=== PATIENT | male | born 1955 | race American Indian/Alaskan Native ===

== ENCOUNTER 2019-03-26 07:52 | Inpatient (IN) | payer BC, OTHER ==
--- NOTE | 2019-03-26 08:43 | XRay Report ---
CHEST 1 VIEW INDICATION: Chest Pain COMPARISON: One day prior. FINDINGS: Support devices: None Heart: Normal Lungs/Pleura: No acute pulmonary or pleural findings. IMPRESSION: 1. No acute disease. Signer Name: Ronan Broderick MD Signed: 03/26/2019 8:39 AM Workstation Name: [id number]
[2019-03-26 08:49] LABS: Hematocrit 52.4 % (35.5-45.6); Hemoglobin 17.8 gm/dl (11.8-15.2); Mean Corpuscular HGB Conc 34 % (32-34); Mean Corpuscular Volume 91 fl (84-94); Platelet Count 261 K/mm3 (140-440); Red Blood Count 5.74 M/mm3 (3.65-5.03); Red Cell Distribution Width 14.4 % (13.2-15.2)
[2019-03-26] MEDS ORDERED: BABY ASPIRIN PO ONE (08:49)
[2019-03-26] MEDS ORDERED: NITROSTAT SL ONE ×2 (08:49→09:15)
[2019-03-26 08:52] LABS: Calcium 9.7 mg/dL (8.4-10.2)
[2019-03-26] MEDS ORDERED: MORPHINE ONE (09:09)
[2019-03-26] MEDS ORDERED: NACL 0.9% 1000 ML 1,000 ML ONE (09:09)
[2019-03-26] MEDS ORDERED: NACL 0.9% 1000 ML 1,000 ML IV ONE (09:17)
[2019-03-26] MEDS ORDERED: MORPHINE IV ONE (09:17)
[2019-03-26] MEDS ORDERED: HEPARIN 10,000 UNITS/10 ML IV ONE (09:22)
--- NOTE | 2019-03-26 09:29 | Emergency Department Report ---
ED Chest Pain HPI - General Chief Complaint: Chest Pain Stated Complaint: CHEST PAIN Time Seen by Provider: 03/26/19 08:22 Source: patient Mode of arrival: Ambulatory Limitations: No Limitations - History of Present Illness Initial Comments: 63-year-old -[place]altese male presents to the emergency department from home with complaint of left shoulder pain and left-sided chest pain. Overall he says that this is been going on intermittently over the past 3 weeks. However this morning the patient started having diaphoresis and consistent chest and shoulder pain. He denies any shortness of breath. He is a tobacco smoker but denies any illicit drug use. There is some questionable family history of early cardiac disease. The patient himself has a history of hypertension and coronary artery disease with a cardiac stent in place and previous PA. 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 He did not take an ything for his symptoms prior to arrival today. No recent travel or sick contacts at home. He denies any lower extremity swelling or fever. Severity scale (0 -10): 7 - Related Data Allergies Allergy/AdvReac Type Severity Reaction Status Date / Time No Known Allergies Allergy Unverified 03/26/19 07:53 Heart Score - HEART Score History: Moderately suspicious EKG: Non-specific Age: 45-65 Risk factors: > 3 risk factors or hx of atherosclerotic disease Troponin: 1-3x normal limit HEART Score: 6 - Critical Actions Critical Actions: 4-6 pts:12-16.6% risk of adverse cardiac event. Should be ad mitted ED Review of Systems ROS: Stated complaint: CHEST PAIN Other details as noted in HPI Comment: All other systems reviewed and negative Constitutional: diaphoresis. denies: chills, fever Eyes: denies: eye pain, vision change ENT: denies: ear pain, throat pain Respiratory: denies: cough, shortness of breath Cardiovascular: chest pain. denies: palpitations Gastrointestinal: denies: abdominal pain, vomiting Genitourinary: denies: dysuria, discharge Musculoskeletal: arthralgia. denies: joint swelling Skin: denies: rash, lesions Neurological: denies: headache, weakness ED Past Medical Hx - Past Medical History Previous Medical History?: Yes Hx Heart Attack/AMI: Yes - Surgical History Past Surgical History?: Yes Additional Surgical History: Cardiac stents - Social History Smoking Status: Light Tobacco Smoker Substance Use Type: None ED Physical Exam - General Limitations: No Limitations - Other Other exam information: GENERAL: The patient is well-developed well-nourished. HENT: Normocephalic. Atraumatic. Patient has moist mucous membranes. EYES: Extraocular motions are intact. NECK: Supple. Trachea is midline. CHEST/LUNGS: Clear to auscultation. There is no respiratory distress noted. Chest pain is not reproducible to palpation of the chest wall. HEART/CARDIOVASCULAR: Regular. There is no tachycardia. There is no murmur. ABDOMEN: Abdomen is soft, nontender. Patient has normal bowel sounds. There is no abdominal distention. SKIN: Skin is warm and dry. NEURO: The patient is awake, alert, and oriented. The patient is cooperative. The patient has no focal neurologic deficits. Normal speech. MUSCULOSKELETAL: There is no tenderness or deformity. There is no limitation range of motion. There is no evidence of acute injury. ED Course Vital Signs 03/26/19 03/26/19 03/26/19 08:16 08:22 08:30 Temperature 98.0 F Pulse Rate 71 70 68 Respiratory 25 H 18 13 Rate Blood Pressure 139/96 143/103 O2 Sat by Pulse 96 99 98 Oximetry 03/26/19 03/26/19 03/26/19 08:46 09:00 09:15 Temperature Pulse Rate 69 81 74 Respiratory 17 13 15 Rate Blood Pressure 139/96 124/89 115/77 O2 Sat by Pulse 98 94 93 Oximetry 03/26/19 03/26/19 03/26/19 09:30 09:45 10:00 Temperature Pulse Rate 66 65 67 Respiratory 11 L 13 15 Rate Blood Pressure 115/81 124/79 122/83 O2 Sat by Pulse 96 96 99 Oximetry 03/26/19 03/26/19 03/26/19 10:15 10:30 10:45 Temperature Pulse Rate 65 68 67 Respiratory 13 14 14 Rate Blood Pressure 122/83 125/81 128/89 O2 Sat by Pulse 72 L 97 99 Oximetry 03/26/19 03/26/19 11:00 11:15 Temperature Pulse Rate 73 67 Respiratory 27 H 9 L Rate Blood Pressure 118/80 123/91 O2 Sat by Pulse 95 96 Oximetry - Consultations Consultation #1: The patient's EKGs and positive first troponin were discussed with [facility] heart cardiology and Dr. Patricio. The EKGs do not appear consistent with a STEMI or require label maker activation. The patient will be admitted to the hospitalist service and the patient will be started on a heparin and nitroglycerin drip and some Aggrastat will be added. 03/26/19 09:27 ROGELIO score - Rogelio Score Age > 65: (0) No Aspirin use within the Past 7 Days: (0) No 3 or more CAD Risk Factors: (1) Yes 2 or more Angina events in past 24 hrs: (1) Yes Known CAD with more than 50% Stenosis: (0) No Elevated Cardiac Markers: (1) Yes ST Deviation Greater than 0.5mm: (1) Yes ROGELIO Score: 4 ED Medical Decision Making - Lab Data Result diagrams: 03/26/19 08:21 03/26/19 08:21 - EKG Data -: EKG Interpreted by Me EKG shows normal: sinus rhythm, axis (left axis deviation), intervals, QRS complexes (Q waves to the anterior leads), ST-T waves (nonspecific ST-T waves) Rate: normal - EKG Data When compared to previous EKG there are: previous EKG unavailable Interpretation: other (sinus rhythm, left axis deviation, Q waves to the anterior leads, nonspecific ST-T waves) - Radiology Data Radiology results: image reviewed interpreted by me: Chest x-ray does not show any acute process. There are no pleural effusions, obvious pneumonia and there is no pneumothorax. - Medical Decision Making Patient presents with some left-sided chest pain and left shoulder pain that was intermittent over the past 3 weeks but has now become constant and more intense. Vital signs stable throughout his ED course. EKG shows some nonspecific ST-T changes but does not have a morphology consistent with ST elevation PA. There are some concerns for ischemic changes. The EKGs and case presentation was discussed with cardiology and the patient does not appear to be a label maker candidate but the recommendation was made to place the patient on heparin, Aggrastat and nitroglycerin drips. First troponin was elevated at 0.5. The second troponin has bumped up to 0.336. Patient will be admitted to the ICU for further evaluation and treatment of his acute coronary syndrome and NSTEMI and was accepted for admission by the hospitalist service. - Differential Diagnosis STEMI, NSTEMI, PE, Pneumonia, CHF Critical Care Time: Yes Critical care time in (mins) excluding proc time.: 35 Critical care attestation.: If time is entered above; I have spent that time in minutes in the direct care of this critically ill patient, excluding procedure time. Critical care time was spent on this patient and doing his initial evaluation, multiple evaluations, ordering and interpretation of labs and imaging, ordering of the heparin and nitroglycerin drips, multiple discussions with cardiology. Critical Care Time: 35 minutes ED Disposition Clinical Impression: Acute coronary syndrome, Acute chest pain, NSTEMI (non-ST elevated myocardial infarction) Disposition: 09 OP ADMIT IP TO THIS HOSP Is pt being admited?: Yes Condition: Serious Time of Disposition: 13:08
[2019-03-26] MEDS ORDERED: AGGRASTAT (BOLUS) IV ONE (09:30)
[2019-03-26 09:40] LABS: Chol/HDL Ratio 5.9 %
[2019-03-26] MEDS ORDERED: TRIDIL DRIP 50MG/250ML 50 MG/250 ML BOTTLE IV SCH (10:00)
[2019-03-26] MEDS ORDERED: HEPARIN/ 0.45% NACL-25,000 UNIT/500 ML 25,000 UNIT/500 ML BAG IV SCH (10:00)
[2019-03-26 10:04] LABS: INR 0.94 (0.87-1.13)
[2019-03-26 10:05] LABS: Partial Thromboplastin Time 33.5 Sec. (24.2-36.6)
[2019-03-26 10:11] LABS: Basophils % (Manual) 0 % (0.0-1.8); Total Cells Counted 100
[2019-03-26 10:12] LABS: Platelet Estimate Consistent w Auto; RBC Morphology Normal
[2019-03-26] MEDS: AGGRASTAT DRIP (12.5 MG/250 ML) 12,500 MCG/250 ML BAG IV SCH ×2 (11:07→22:01)
--- NOTE | 2019-03-26 11:59 | History and Physical Report ---
History of Present Illness Date of examination: 03/26/19 Date of admission: 03/26/19 10:19 Chief complaint: Chest pain History of present illness: 63-year-old -[place] male with h/o CAD s/p PCI, HTN, HLD, tobacco abuse presents to the emergency department from home with complaint of left shoulder pain and left-sided chest pain which has been going on for last 2 weeks off and on. Usually the pain last for less than a minute and resolves by its on. Zarate eric this morning the patient started having diaphoresis and consistent chest and shoulder pain and pain did not resolve. He denies any shortness of breath. 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 He did not take anything for his symptoms prior to arrival today. No recent travel or sick contacts at home. He denies any lower extremity swelling or fever. In the ER he noted elevated troponin, cardiology consulted from ED and recommended to place on heparin and Aggrastat drip for now. He is being admitted to ICU for further evaluation and Mx. Review of System: Constitutional: no fever, no chills, no weight loss Ears, eyes, nose, mouth and throat: no nasal congestion, no nasal discharge, no sinus pressure, no vision change, no red eye. Neck: No neck pain or rigidity. Cardiovascular: + chest pain, no orthopnea, no palpitations, no leg swelling Respiratory: No shortness of breath, no cough, no congestion, no wheezing Gastrointestinal: no abdominal pain, no nausea, no vomiting Genitourinary : no dysuria, no hematuria Musculoskeletal: no joint swelling or muscle ache Integumentary: no rash, no pruritis Neurological: no parathesias, no numbness, no tingling Endocrine: no cold or heat intolerance, no polyuria or polydipsia Hematologic/Lymphatic: no easy bruising, no easy bleeding, no gland swelling Allergic/Immunologic: no urticaria, no angioedema. Medications and Allergies Allergies Allergy/AdvReac Type Severity Reaction Status Date / Time No Known Allergies Allergy Unverified 03/26/19 07:53 Home Medications Medication Instructions Recorded Confirmed Last Taken Type Atorvastatin Calcium [Lipitor] 80 mg PO QHS 03/26/19 03/26/19 Unknown History Carvedilol [Coreg] 6.25 mg PO BID 09/07/19 09/07/19 Unknown History Lisinopril [Zestril TAB] 10 mg PO QDAY 03/26/19 03/26/19 Unknown History Active Meds: Active Medications Sodium Chloride (Nacl 0.9% 1000 Ml) 1,000 mls @ 250 mls/hr IV ONCE ONE Stop: 03/26/19 13:16 Last Admin: 03/26/19 09:18 Dose: 250 mls/hr Documented by: Heparin Sodium/Sodium Chloride (Heparin/ 0.45% Nacl-25,000 Unit/500 Ml) 25,000 unit in 500 mls @ 20 mls/hr IV TITRATE MEENA; Protocol Last Admin: 03/26/19 10:25 Dose: 1,000 units/hr, 20 mls/hr Documented by: Nitroglycerin/Dextrose (Tridil Drip 50mg/250ml) 50 mg in 250 mls @ 3 mls/hr IV TITR MEENA; Protocol Last Admin: 03/26/19 10:38 Dose: 10 mcg/min, 3 mls/hr Documented by: Tirofiban/Sodium Chloride (Aggrastat Drip (12.5 Mg/250 Ml)) 12,500 mcg in 250 mls @ 18 mls/hr IV DIRECT MEENA; Protocol Stop: 03/26/19 22:01 Last Admin: 03/26/19 11:07 Dose: 18 mls/hr Documented by: Exam - Physical Exam Narrative exam: GENERAL: well-developed and well-nourished lying on bed appeared to be in no discomfort. HEENT: Normocephalic. Atraumatic. No conjunctival congestion or icterus. Patient has moist mucous membranes. NECK: Supple. Trachea midline. CHEST/LUNGS: Clear to auscultated bilaterally, breathing nonlabored. No wheezes crackles or rhonchi. HEART/CARDIOVASCULAR: Regular in rate and rhythm. S1 and S2 positive. ABDOMEN: Abdomen is soft, nontender. Patient has normal bowel sounds. SKIN: There is no rash. Warm and dry. NEURO: No focal motor deficit. Follows command. MUSCULOSKELETAL: No joint effusion or tenderness. EXTRIMITY: No edema, no cyanosis or clubbing. PSYCH: Cooperative. - Constitutional Vitals: Temp Pulse Resp BP Pulse Ox 98.0 F 67 9 L 123/91 96 03/26/19 08:22 03/26/19 11:15 03/26/19 11:15 03/26/19 11:15 03/26/19 11:15 Results - Labs CBC & Chem 7: 03/28/19 04:57 03/28/19 00:44 Labs: Abnormal lab results 03/26/19 03/26/19 03/26/19 Range/Units 08:21 08:21 11:08 RBC 5.74 H (3.65-5.03) M/mm3 Hgb 17.8 H (11.8-15.2) gm/dl Hct 52.4 H (35.5-45.6) % Seg Neuts % (Manual) 38.0 L (40.0-70.0) % Lymphocytes % (Manual) 46.0 H (13.4-35.0) % Eosinophils % (Manual) 5.0 H (0.0-4.3) % Glucose 190 H (75-100) mg/dL Troponin T 0.050 H 0.336 H* D (0.00-0.029) ng/mL Triglycerides 317 H (2-149) mg/dL HDL Cholesterol 31 L (40-59) mg/dL - Imaging and Cardiology Chest x-ray: report reviewed (no acute process) Assessment and Plan Acute chest pain with non-ST elevation KS type 1 - will admit to ICU bed - monitor with serial CE and EKG - will place on Aspirin, statin, heparin drip, nitro drip and Aggrastat drip - as needed SL NTG and iv morphin for pain - Monitor BP, add betablocker and ACEI if BP tolerates - order 2D echo and plan for cardiac in the Thursday morning - cardiac diet now, cardiology consulted h/o CAD with PCI, cont current Mx, HTN, on nitro drip HLD, on statin Tobacco abuse, counselled for cessation, nicotine patch if needed DVT Px, on heparin
[2019-03-26] MEDS ORDERED: ZOFRAN IV PRN (12:11)
[2019-03-26] MEDS ORDERED: MORPHINE IV PRN (12:11)
[2019-03-26] MEDS ORDERED: NORMODYNE IV PRN (12:11)
[2019-03-26] MEDS ORDERED: TYLENOL PO PRN (12:11)
[2019-03-26] MEDS ORDERED: PERCOCET 5/325 PO PRN (12:11)
[2019-03-26] MEDS ORDERED: PERCOCET 5/325 ONE (13:09)
--- NOTE | 2019-03-26 13:57 | Consultation ---
History of Present Illness Consult date: 03/26/19 Requesting physician: TROY TRACEY Consult reason: chest pain History of present illness: Mr. Enriquez is a 63 y/o male who presented to the ED with left- sided chest pain x3 weeks that became severe yesterday and began radiating to his upper arm and shoulder. He has a history of CAD s/p PCI (4-5 y/a) hy pertension, diabetes and GERD. 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 He reports that he is noncompliant with bASA, but was never prescribed an antiplatelet medication after his PCI. On admission, initial troponin 0.[address]/T wave changes noted on EKGs. He was started on heparin, aggrastat and nitroglycerin gtt in the ED. Past History Past Medical History: CAD, diabetes, GERD Medications and Allergies Allergies Allergy/AdvReac Type Severity Reaction Status Date / Time No Known Allergies Allergy Unverified 03/26/19 07:53 Home Medications Medication Instructions Recorded Confirmed Last Taken Type Atorvastatin Calcium [Lipitor] 80 mg PO QHS 03/26/19 03/26/19 Unknown History Carvedilol [Coreg] 6.25 mg PO BID 03/26/19 03/26/19 Unknown History Lisinopril [Zestril TAB] 10 mg PO QDAY 03/26/19 03/26/19 Unknown History Active Meds: Active Medications Acetaminophen (Tylenol) 650 mg PO Q4H PRN PRN Reason: Pain MILD(1-3)/Fever >100.5/LAMAS Atorvastatin Calcium (Lipitor) 80 mg PO QHS MEENA Docusate Sodium (Colace) 100 mg PO BID MEENA Heparin Sodium/Sodium Chloride (Heparin/ 0.45% Nacl-25,000 Unit/500 Ml) 25,000 unit in 500 mls @ 20 mls/hr IV TITRATE MEENA; Protocol Last Admin: 03/26/19 10:25 Dose: 1,000 units/hr, 20 mls/hr Documented by: Nitroglycerin/Dextrose (Tridil Drip 50mg/250ml) 50 mg in 250 mls @ 3 mls/hr IV TITR MEENA; Protocol Last Admin: 03/26/19 10:38 Dose: 10 mcg/min, 3 mls/hr Documented by: Tirofiban/Sodium Chloride (Aggrastat Drip (12.5 Mg/250 Ml)) 12,500 mcg in 250 mls @ 18 mls/hr IV DIRECT MEENA; Protocol Stop: 03/27/19 06:00 Last Admin: 03/26/19 11:07 Dose: 18 mls/hr Documented by: Labetalol HCl (Normodyne) 10 mg IV Q4H PRN PRN Reason: Hypertension Morphine Sulfate (Morphine) 2 mg IV Q3H PRN PRN Reason: Pain, Moderate (4-6) Ondansetron HCl (Zofran) 4 mg IV Q8H PRN PRN Reason: N/V unrelieved by Reglan Oxycodone/Acetaminophen (Percocet 5/325) 1 tab PO Q6H PRN PRN Reason: Pain, Moderate (4-6) Last Admin: 03/26/19 13:08 Dose: 1 tab Documented by: Review of Systems All systems: negative Cardiovascular: chest pain Physical Examination Vital Signs Pulse Resp Pulse Ox 71 25 H 96 03/26/19 08:16 03/26/19 08:16 03/26/19 08:16 General appearance: no acute distress HEENT: Positive: PERRL Cardiac: Positive: Reg Rate and Rhythm Lungs: Positive: Normal Exam Neuro: Positive: Grossly Intact Abdomen: Positive: Unremarkable Male genitourinary: Positive: deferred Skin: Positive: Clear Musculoskeletal: No Pain Extremities: Present: normal Results 03/26/19 08:21 03/26/19 08:21 Coagulation 03/26/19 Range/Units 09:17 PT 12.3 (12.2-14.9) Sec. INR 0.94 (0.87-1.13) APTT 33.5 (24.2-36.6) Sec. Lipids 03/26/19 Range/Units 08:21 Triglycerides 317 H (2-149) mg/dL Cholesterol 183 (50-199) mg/dL HDL Cholesterol 31 L (40-59) mg/dL Cholesterol/HDL Ratio 5.90 % CBC 03/26/19 Range/Units 08:21 WBC 7.3 (4.5-11.0) K/mm3 RBC 5.74 H (3.65-5.03) M/mm3 Hgb 17.8 H (11.8-15.2) gm/dl Hct 52.4 H (35.5-45.6) % Plt Count 261 (140-440) K/mm3 Comprehensive Metabolic Panel 03/26/19 Range/Units 08:21 Sodium 139 (137-145) mmol/L Potassium 4.1 (3.6-5.0) mmol/L Chloride 101.3 (98-107) mmol/L Carbon Dioxide 23 (22-30) mmol/L BUN 16 (9-20) mg/dL Creatinine 1.5 (0.8-1.5) mg/dL Glucose 190 H (75-100) mg/dL Calcium 9.7 (8.4-10.2) mg/dL - Imaging and Cardiology Echo: pending Cardiac cath: pending - EKG Interpretation EKG: sinus rhythm EKG interpretations - Telemetry EKG Rhythm: Sinus Rhythm Repolarization changes or abnormalities: ST or T wave suggestive of ischemia Assessment and Plan Mr. Enriquez is a 63 y/o male admitted with chest pain. His presentation is consistent with NSTEMI, so heparin drip initiated along with aggrastat and nitroglycerin. He is currently hemodynamically stable. Trend troponins. Will schedule for cardiac catheterization on Thursday and will obtain echocardiogram. Continue home cardiac medications, heparin and nitro. Continue aggrastat for a total of 18 hours - stop on 03/27/19 at 0500. The patient has been seen in conjunction with Dr. Williamson, who agrees with the assessment and plan. - Patient Problems (1) NSTEMI (non-ST elevated myocardial infarction) Current Visit: Yes Status: Acute (2) Acute chest pain Current Visit: Yes Status: Acute (3) Hypertension Current Visit: Yes Status: Chronic (4) Diabetes Current Visit: Yes Status: Chronic (5) GERD (gastroesophageal reflux disease) Current Visit: Yes Status: Chronic
[2019-03-26 16:18] LABS: Hematocrit 50.2 % (35.5-45.6); Hemoglobin 17.3 gm/dl (11.8-15.2)
[2019-03-26] MEDS ORDERED: LIDOCAINE VISCOUS 2% PO ONE (19:35)
[2019-03-26] MEDS ORDERED: ALUM-MAG HYDROX-SIMETH 200-200-20MG/5ML ONE (19:43)
[2019-03-26] MEDS ORDERED: LIDOCAINE VISCOUS 2% ONE (19:44)
[2019-03-26] MEDS: ALUM-MAG HYDROX-SIMETH 200-200-20MG/5ML PO PRN (19:44)
[2019-03-26] MEDS ORDERED: AGGRASTAT DRIP (12.5 MG/250 ML) 12,500 MCG/250 ML BAG IV ONE (21:52)
[2019-03-26] MEDS: COLACE PO SCH (22:12)
[2019-03-27 06:08] LABS: Basophils # (Auto) 0.1 K/mm3 (0.0-0.1); Basophils % (Auto) 0.8 % (0.0-1.8); Eosinophils % (Auto) 0.4 % (0.0-4.3); Hematocrit 49.2 % (35.5-45.6); Hemoglobin 16.5 gm/dl (11.8-15.2); Lymphocytes # (Auto) 2.5 K/mm3 (1.2-5.4); Lymphocytes % (Auto) 24.7 % (13.4-35.0); Mean Corpuscular HGB Conc 34 % (32-34); Mean Corpuscular Volume 92 fl (84-94); Monocytes # (Auto) 0.8 K/mm3 (0.0-0.8); Monocytes % (Auto) 7.6 % (0.0-7.3); Red Blood Count 5.34 M/mm3 (3.65-5.03); Red Cell Distribution Width 14.4 % (13.2-15.2)
[2019-03-27 06:21] LABS: Platelet Count 228 K/mm3 (140-440)
[2019-03-27 06:51] LABS: BUN/Creatinine Ratio 10; Blood Urea Nitrogen 14 mg/dL (9-20); Calcium 9.4 mg/dL (8.4-10.2); Hemolysis Index 9
[2019-03-27] MEDS: COLACE PO SCH ×2 (11:22→21:23)
[2019-03-27] MEDS ORDERED: HEPARIN/ 0.45% NACL-25,000 UNIT/500 ML 25,000 UNIT/500 ML BAG ONE (12:05)
[2019-03-27] MEDS ORDERED: ALUM-MAG HYDROX-SIMETH 200-200-20MG/5ML ONE (12:13)
[2019-03-27] MEDS ORDERED: ASPIRIN ONE (12:14)
[2019-03-27] MEDS: ASPIRIN PO SCH (12:16)
[2019-03-27] MEDS: ALUM-MAG HYDROX-SIMETH 200-200-20MG/5ML PO PRN (12:16)
--- NOTE | 2019-03-27 12:59 | Progress Note ---
Assessment and Plan Acute chest pain with non-ST elevation PA type 1 - monitor with serial CE and EKG - placed on Aspirin, statin, heparin drip, nitro drip and Aggrastat drip for 24 h - now off nitro drip and Aggrastat drip - as needed SL NTG and iv morphin for pain - Monitor BP, add betablocker and ACEI if BP tolerates - ordered 2D echo and plan for cardiac in the Thursday morning - cardiac diet now, cardiology following h/o CAD with PCI, cont current Mx, HTN, on nitro drip HLD, on statin DVT Px, on heparin Subjective Date of service: 03/27/19 Interval history: Patient seen and examined denies any chest pain or SOB Plan for cath tomorrow, tolerating diet Objective - Exam Narrative Exam: GENERAL: well-developed and well-nourished AAM lying on bed appeared to be in no discomfort. HEENT: Normocephalic. Atraumatic. No conjunctival congestion or icterus. Patient has moist mucous membranes. NECK: Supple. Trachea midline. CHEST/LUNGS: Clear to auscultated bilaterally, breathing nonlabored. No wheezes crackles or rhonchi. HEART/CARDIOVASCULAR: Regular in rate and rhythm. S1 and S2 positive. ABDOMEN: Abdomen is soft, nontender. Patient has normal bowel sounds. SKIN: There is no rash. Warm and dry. NEURO: No focal motor deficit. Follows command. MUSCULOSKELETAL: No joint effusion or tenderness. EXTRIMITY: No edema, no cyanosis or clubbing. PSYCH: Cooperative. - Constitutional Vitals: Vital Signs - 12hr 03/27/19 03/27/19 03/27/19 01:00 01:15 01:30 Pulse Rate 76 73 79 Respiratory 20 23 18 Rate Blood Pressure 128/84 135/89 133/97 Blood Pressure [Left] O2 Sat by Pulse 97 97 98 Oximetry 03/27/19 03/27/19 03/27/19 01:45 02:00 02:15 Pulse Rate 73 75 78 Respiratory 17 18 24 Rate Blood Pressure 128/81 131/85 133/83 Blood Pressure [Left] O2 Sat by Pulse 97 97 97 Oximetry 03/27/19 03/27/19 03/27/19 02:30 02:45 03:00 Pulse Rate 75 85 Respiratory 19 20 13 Rate Blood Pressure 131/84 123/81 118/85 Blood Pressure [Left] O2 Sat by Pulse 97 94 95 Oximetry 03/27/19 03/27/19 03/27/19 03:16 03:30 03:40 Pulse Rate 74 70 66 Respiratory 16 20 18 Rate Blood Pressure 110/79 97/57 108/72 Blood Pressure [Left] O2 Sat by Pulse 96 89 93 Oximetry 03/27/19 03/27/19 03/27/19 03:45 03:50 03:55 Pulse Rate 76 70 85 Respiratory 20 22 24 Rate Blood Pressure 97/60 94/62 98/60 Blood Pressure [Left] O2 Sat by Pulse 93 94 94 Oximetry 03/27/19 03/27/19 03/27/19 04:00 04:05 04:10 Pulse Rate 71 75 73 Respiratory 20 16 19 Rate Blood Pressure 96/58 94/60 99/54 Blood Pressure [Left] O2 Sat by Pulse 93 95 93 Oximetry 03/27/19 03/27/19 03/27/19 04:15 04:20 04:25 Pulse Rate 73 77 72 Respiratory 23 21 24 Rate Blood Pressure 97/58 100/63 96/58 Blood Pressure [Left] O2 Sat by Pulse 94 95 95 Oximetry 03/27/19 03/27/19 03/27/19 04:30 04:35 04:40 Pulse Rate 73 79 Respiratory 13 25 H 17 Rate Blood Pressure 102/60 93/61 93/61 Blood Pressure [Left] O2 Sat by Pulse 93 94 88 Oximetry 03/27/19 03/27/19 03/27/19 04:45 04:50 04:55 Pulse Rate 81 85 Respiratory 16 14 17 Rate Blood Pressure 102/64 102/64 105/77 Blood Pressure [Left] O2 Sat by Pulse 96 98 95 Oximetry 03/27/19 03/27/19 03/27/19 05:00 05:05 05:10 Pulse Rate 76 74 77 Respiratory 21 25 H 22 Rate Blood Pressure 115/79 112/81 120/76 Blood Pressure [Left] O2 Sat by Pulse 95 97 95 Oximetry 03/27/19 03/27/19 03/27/19 05:15 05:20 05:25 Pulse Rate 74 78 74 Respiratory 26 H 15 24 Rate Blood Pressure 124/80 114/84 127/80 Blood Pressure [Left] O2 Sat by Pulse 96 94 94 Oximetry 03/27/19 03/27/19 03/27/19 05:30 05:35 05:40 Pulse Rate 73 81 Respiratory 25 H 21 18 Rate Blood Pressure 120/82 114/87 123/83 Blood Pressure [Left] O2 Sat by Pulse 94 93 66 L Oximetry 03/27/19 03/27/19 03/27/19 05:45 05:50 05:56 Pulse Rate Respiratory 23 15 20 Rate Blood Pressure 120/84 109/82 114/83 Blood Pressure [Left] O2 Sat by Pulse 92 91 93 Oximetry 03/27/19 03/27/19 03/27/19 06:00 06:05 06:10 Pulse Rate Respiratory 21 24 21 Rate Blood Pressure 120/81 113/79 119/84 Blood Pressure [Left] O2 Sat by Pulse 90 92 95 Oximetry 03/27/19 03/27/19 03/27/19 06:15 06:20 06:25 Pulse Rate Respiratory 12 19 24 Rate Blood Pressure 117/80 116/83 112/78 Blood Pressure [Left] O2 Sat by Pulse 95 94 92 Oximetry 03/27/19 03/27/19 03/27/19 06:30 06:35 06:40 Pulse Rate Respiratory 17 18 22 Rate Blood Pressure 118/80 114/82 113/80 Blood Pressure [Left] O2 Sat by Pulse 94 94 92 Oximetry 03/27/19 03/27/19 03/27/19 06:45 06:50 06:55 Pulse Rate Respiratory 23 20 23 Rate Blood Pressure 125/83 124/91 130/85 Blood Pressure [Left] O2 Sat by Pulse 90 90 93 Oximetry 03/27/19 03/27/19 03/27/19 07:00 07:06 07:10 Pulse Rate Respiratory 23 18 11 L Rate Blood Pressure 121/84 121/84 80/52 Blood Pressure [Left] O2 Sat by Pulse 93 95 96 Oximetry 03/27/19 03/27/19 03/27/19 07:15 07:20 07:25 Pulse Rate Respiratory 36 H 23 19 Rate Blood Pressure 115/79 106/74 110/80 Blood Pressure [Left] O2 Sat by Pulse 94 96 94 Oximetry 03/27/19 03/27/19 03/27/19 07:30 07:35 07:40 Pulse Rate Respiratory 27 H 24 15 Rate Blood Pressure 114/80 122/84 116/80 Blood Pressure [Left] O2 Sat by Pulse 95 94 96 Oximetry 03/27/19 03/27/19 03/27/19 07:45 07:50 07:56 Pulse Rate 86 96 H Respiratory 24 13 19 Rate Blood Pressure 117/85 114/82 114/82 Blood Pressure [Left] O2 Sat by Pulse 96 97 94 Oximetry 03/27/19 03/27/19 03/27/19 08:00 08:05 08:10 Pulse Rate 84 84 82 Respiratory 9 L 11 L 21 Rate Blood Pressure 114/82 124/82 114/84 Blood Pressure [Left] O2 Sat by Pulse 97 95 96 Oximetry 03/27/19 03/27/19 03/27/19 08:15 08:20 08:25 Pulse Rate 78 81 82 Respiratory 14 20 15 Rate Blood Pressure 115/83 117/83 118/84 Blood Pressure [Left] O2 Sat by Pulse 97 96 96 Oximetry 03/27/19 03/27/19 03/27/19 08:30 09:00 09:06 Pulse Rate 76 78 83 Respiratory 14 20 13 Rate Blood Pressure 114/85 112/81 112/81 Blood Pressure [Left] O2 Sat by Pulse 98 95 96 Oximetry 03/27/19 03/27/19 03/27/19 09:10 09:15 09:20 Pulse Rate 86 82 Respiratory 17 22 32 H Rate Blood Pressure 112/81 120/83 120/83 Blood Pressure [Left] O2 Sat by Pulse 96 97 95 Oximetry 03/27/19 03/27/19 03/27/19 09:26 09:30 09:36 Pulse Rate Respiratory 15 22 14 Rate Blood Pressure 120/83 115/86 115/86 Blood Pressure [Left] O2 Sat by Pulse 96 95 92 Oximetry 03/27/19 03/27/19 03/27/19 09:40 09:45 09:50 Pulse Rate Respiratory 17 25 H 22 Rate Blood Pressure 115/86 117/90 117/90 Blood Pressure [Left] O2 Sat by Pulse 95 95 96 Oximetry 03/27/19 03/27/19 03/27/19 09:56 10:00 10:06 Pulse Rate Respiratory 23 23 18 Rate Blood Pressure 117/90 126/85 126/85 Blood Pressure [Left] O2 Sat by Pulse 95 96 95 Oximetry 03/27/19 03/27/19 03/27/19 10:10 10:15 10:20 Pulse Rate Respiratory 20 21 21 Rate Blood Pressure 126/85 119/83 119/83 Blood Pressure [Left] O2 Sat by Pulse 94 95 96 Oximetry 03/27/19 03/27/19 03/27/19 10:26 10:30 10:36 Pulse Rate Respiratory 22 20 17 Rate Blood Pressure 119/83 130/87 130/87 Blood Pressure [Left] O2 Sat by Pulse 95 94 96 Oximetry 03/27/19 03/27/19 03/27/19 10:40 10:45 10:50 Pulse Rate Respiratory 17 17 19 Rate Blood Pressure 130/87 129/87 129/87 Blood Pressure [Left] O2 Sat by Pulse 95 95 96 Oximetry 03/27/19 03/27/19 03/27/19 10:56 11:00 12:44 Pulse Rate 88 Respiratory 24 22 15 Rate Blood Pressure 129/87 124/83 Blood Pressure 125/74 [Left] O2 Sat by Pulse 95 95 96 Oximetry - Labs CBC & Chem 7: 03/28/19 04:57 03/28/19 00:44 Labs: Abnormal lab results 03/26/19 03/26/19 03/27/19 Range/Units 16:03 16:03 05:37 RBC 5.34 H (3.65-5.03) M/mm3 Hgb 17.3 H 16.5 H (11.8-15.2) gm/dl Hct 50.2 H 49.2 H (35.5-45.6) % [place] % (Auto) 7.6 H (0.0-7.3) % Glucose (75-100) mg/dL Troponin T 7.030 H* D (0.00-0.029) ng/mL 03/27/19 Range/Units 05:37 RBC (3.65-5.03) M/mm3 Hgb (11.8-15.2) gm/dl Hct (35.5-45.6) % [place] % (Auto) (0.0-7.3) % Glucose 134 H (75-100) mg/dL Troponin T (0.00-0.029) ng/mL
[2019-03-27] MEDS: COREG PO SCH ×2 (13:15→21:23)
[2019-03-27] MEDS ORDERED: COREG ONE (13:17)
--- NOTE | 2019-03-27 14:09 | Progress Note ---
Assessment and Plan Patient is scheduled for a cardiac catheterization tomorrow. Keep NPO after midnight and STOP HEPARIN at 0200. Will resume home Coreg. Further recommendations pending after procedure. The patient has been seen in conjunction with Dr. Williamson, who agrees with the assessment and plan of care. - Patient Problems (1) NSTEMI (non-ST elevated myocardial infarction) Current Visit: Yes Status: Acute (2) Acute chest pain Current Visit: Yes Status: Acute (3) Cardiomyopathy, ischemic Current Visit: Yes Status: Chronic (4) Hypertension Current Visit: Yes Status: Chronic (5) Diabetes Current Visit: Yes Status: Chronic (6) GERD (gastroesophageal reflux disease) Current Visit: Yes Status: Chronic Subjective Date of service: 03/27/19 Interval history: The patient is in a stretcher in [facility]. Denies CP. Troponin elevated to 7. Echocardiogram from 03/26/19 reviewed: EF 25 to 30 percent, lyhg-ke-ufcnfogi MR, mild TR, RVSP 25. Objective Last Vital Signs Temp 98.0 F 03/26/19 08:22 Pulse 87 03/27/19 13:17 Resp 18 03/27/19 13:17 BP 127/84 03/27/19 13:17 Pulse Ox 96 03/27/19 13:17 - Physical Examination General: No Apparent Distress HEENT: Positive: PERRL Neck: Positive: trachea midline Cardiac: Positive: Reg Rate and Rhythm Lungs: Positive: Normal Exam Neuro: Positive: Grossly Intact Abdomen: Positive: Unremarkable /Rectal: Other (deferred) Skin: Positive: Clear Musculoskeletal: No Pain Extremities: Present: normal - Labs and Meds CBC 03/26/19 03/27/19 Range/Units 16:03 05:37 WBC 9.9 (4.5-11.0) K/mm3 RBC 5.34 H (3.65-5.03) M/mm3 Hgb 17.3 H 16.5 H (11.8-15.2) gm/dl Hct 50.2 H 49.2 H (35.5-45.6) % Plt Count 249 228 (140-440) K/mm3 Lymph # 2.5 (1.2-5.4) K/mm3 [place] # 0.8 (0.0-0.8) K/mm3 Eos # 0.0 (0.0-0.4) K/mm3 Baso # 0.1 (0.0-0.1) K/mm3 Comprehensive Metabolic Panel 03/27/19 Range/Units 05:37 Sodium 139 (137-145) mmol/L Potassium 4.7 (3.6-5.0) mmol/L Chloride 102.4 (98-107) mmol/L Carbon Dioxide 29 (22-30) mmol/L BUN 14 (9-20) mg/dL Creatinine 1.4 (0.8-1.5) mg/dL Glucose 134 H (75-100) mg/dL Calcium 9.4 (8.4-10.2) mg/dL - Imaging and Cardiology Echo: pending, report reviewed (03/2019: EF 25 to 30 percent, gmhz-kp-buybptna MR, mild TR, RVSP 25) Cardiac cath: pending - Telemetry EKG Rhythm: Sinus Rhythm Repolarization changes or abnormalities: ST or T wave suggestive of ischemia
[2019-03-27] MEDS ORDERED: NACL 0.9% 500 ML 500 ML IV SCH (15:00)
[2019-03-28 01:09] LABS: INR 1.05 (0.87-1.13)
[2019-03-28 01:16] LABS: BUN/Creatinine Ratio 11; Blood Urea Nitrogen 16 mg/dL (9-20); Calcium 9.2 mg/dL (8.4-10.2); Hemolysis Index 21
[2019-03-28 05:29] LABS: Hematocrit 50.7 % (35.5-45.6); Hemoglobin 17.1 gm/dl (11.8-15.2)
[2019-03-28] MEDS ORDERED: NACL 0.9% 500 ML 500 ML IV SCH (06:00)
[2019-03-28] MEDS ORDERED: ASPIRIN ONE (09:02)
[2019-03-28] MEDS: ASPIRIN PO SCH (09:02)
[2019-03-28] MEDS ORDERED: CALAN ONE (09:31)
[2019-03-28] MEDS ORDERED: HEPARIN/NS 5000 UNIT/500ML(CATH LAB) 1,000 ML IR ONE (09:31)
[2019-03-28] MEDS ORDERED: VERSED ONE (09:32)
[2019-03-28] MEDS ORDERED: XYLOCAINE 2% INFILTRATI ONE (09:32)
[2019-03-28] MEDS ORDERED: SUBLIMAZE ONE (09:32)
[2019-03-28] MEDS ORDERED: NITROGLYCERIN SYRINGE 3 ML ONE (09:32)
[2019-03-28] MEDS: HEPARIN 10,000 UNITS/10 ML ONE ×2 (10:14→10:19)
[2019-03-28] MEDS ORDERED: EFFIENT PO ONE (10:53)
--- NOTE | 2019-03-28 10:55 | Progress Note ---
<KARIME SANCHEZ - Last Filed: 03/28/19 10:56> Assessment and Plan Echo reviewed - - Patient Problems (1) NSTEMI (non-ST elevated myocardial infarction) Current Visit: Yes Status: Acute (2) CAD (coronary artery disease) Current Visit: Yes Status: Chronic (3) Stented coronary artery Current Visit: Yes Status: Chronic (4) Cardiomyopathy Current Visit: Yes Status: Chronic (5) Hypertension Current Visit: Yes Status: Chronic (6) Diabetes Current Visit: Yes Status: Chronic Subjective Date of service: 03/28/19 Principal diagnosis: NSTEMI Interval history: pt resting in bed, no current complaints, for [facility] today. Objective Last Vital Signs Temp 98.0 F 03/28/19 08:31 Pulse 84 03/28/19 08:31 Resp 18 03/28/19 08:31 BP 110/84 03/28/19 08:31 Pulse Ox 94 03/28/19 03:46 - Physical Examination General: No Apparent Distress HEENT: Positive: PERRL Neck: Positive: trachea midline Cardiac: Positive: Reg Rate and Rhythm, S1/S2 Lungs: Positive: Decreased Breath Sounds Neuro: Positive: Grossly Intact Abdomen: Positive: Unremarkable /Rectal: Other (deferred) Skin: Positive: Clear Musculoskeletal: No Pain Extremities: Present: normal - Labs and Meds Coagulation 03/28/19 Range/Units 00:44 PT 13.4 (12.2-14.9) Sec. INR 1.05 (0.87-1.13) CBC 03/28/19 Range/Units 04:57 Hgb 17.1 H (11.8-15.2) gm/dl Hct 50.7 H (35.5-45.6) % Plt Count 211 (140-440) K/mm3 Comprehensive Metabolic Panel 03/28/19 Range/Units 00:44 Sodium 138 (137-145) mmol/L Potassium 4.1 (3.6-5.0) mmol/L Chloride 100.1 (98-107) mmol/L Carbon Dioxide 25 (22-30) mmol/L BUN 16 (9-20) mg/dL Creatinine 1.4 (0.8-1.5) mg/dL Glucose 109 H (75-100) mg/dL Calcium 9.2 (8.4-10.2) mg/dL - Imaging and Cardiology Echo: pending, report reviewed (03/2019: EF 25 to 30 percent, wvuq-jp-[id number] MR, mild TR, RVSP 25) Cardiac cath: pending Repolarization changes or abnormalities: ST or T wave suggestive of ischemia <LEON ALVAREZ - Last Filed: 03/28/19 11:17> Assessment and Plan [facility] via [facility] this am: 1. Acute atherothrombotic 99% subtotal occlusion of mid-LCX (culprit) * Successful IVUS-guided PCI w/ placement of JONY * patent prox LAD stent * moderate diffuse nonobstructive disease in remainder of coronary tree 2. Renan-apical hypokinesis with EF of 30-35% 3. No Pt is clinically stable. Smoking cessation discussed at length DAPT/statin tx emphasized. Possible dc in am. Given ischemic CM, will need close f/u. Objective Vital Signs Temp Pulse Resp BP BP Pulse Ox 03/28/19 08:31 98.0 F 84 18 110/84 03/28/19 03:46 98.2 F 87 18 121/85 94 03/28/19 00:00 95 03/27/19 23:32 99.0 F 88 18 119/82 88 03/27/19 23:00 81 03/27/19 19:21 99.0 F 92 H 18 127/86 93 03/27/19 18:46 16 96 03/27/19 17:32 91 H 125/84 93 03/27/19 16:58 93 H 20 137/73 96 03/27/19 16:00 98.3 F 90 20 124/73 96 03/27/19 13:17 87 18 127/84 96 03/27/19 13:15 88 127/84 03/27/19 12:44 88 15 125/74 96 - Labs and Meds Coagulation 03/28/19 Range/Units 00:44 PT 13.4 (12.2-14.9) Sec. INR 1.05 (0.87-1.13) CBC 03/28/19 Range/Units 04:57 Hgb 17.1 H (11.8-15.2) gm/dl Hct 50.7 H (35.5-45.6) % Plt Count 211 (140-440) K/mm3 Comprehensive Metabolic Panel 03/28/19 Range/Units 00:44 Sodium 138 (137-145) mmol/L Potassium 4.1 (3.6-5.0) mmol/L Chloride 100.1 (98-107) mmol/L Carbon Dioxide 25 (22-30) mmol/L BUN 16 (9-20) mg/dL Creatinine 1.4 (0.8-1.5) mg/dL Glucose 109 H (75-100) mg/dL Calcium 9.2 (8.4-10.2) mg/dL
--- NOTE | 2019-03-28 11:15 | Cardiac Catherization Report ---
CARDIAC CATHETERIZATION REFERRING PHYSICIAN: Dr. Calderon. INDICATION FOR PROCEDURE: The patient is a very pleasant 63-year-old -[place] gentleman with multiple risk factors, history of coronary artery disease/PCI, presents with chest pain. Findings consistent with non-ST elevation myocardial infarction, admitted, started on heparin, referred for left heart catheterization. Risks, benefits, and potential alternatives explained at length prior to obtaining informed consent. PROCEDURE IN DETAIL: The patient was brought to catheterization lab in a postabsorptive state, prepped and draped in sterile fashion. Juan's test in right hand was normal. A 2 mL of 2% lidocaine used to anesthetize the right wrist. A standard 6-[place] hydrophilic sheath used to cannulate the right radial artery via modified Seldinger technique. All exchanges performed to exchange a J-tip guidewire. JL3.5 of catheter used to engage the left main. No dampening or ventricularization. Cineangiography performed in all projections. JR4 catheter used to cross the aortic valve under fluoroscopic guidance. Left ventriculography performed in 30 HARRIS and 30 CHILEAN projections via hand injections, catheter flushed. Manual pullback performed with continuous pressure monitoring. Catheter used to engage the right coronary. No dampening or ventricularization. Cineangiography performed in all projections. DATA: Aortic pressure is 110/80, LV pressure is 110, LVEDP of 18 mmHg. Left ventriculography reveals anteroapical hypokinesis, estimated ejection fraction of 30-35%. No evidence of aortic stenosis. CORONARY ANATOMY: This is a right dominant system. Right coronary is a moderate sized vessel, courses AV groove, tortuous 30-40% proximal right coronary stenosis. Buow-sn-knbfcgcd diffuse disease noted. No obstructive disease, ROGELIO 3 flow. Left main is short. No disease, bifurcates into left anterior descending artery and left circumflex. Left circumflex is a moderate sized vessel, courses AV groove. There is a 99% subtotal occlusion in the midsegment just prior to the takeoff of the large OM trunk. ROGELIO 2 flow atherothrombotic characteristics certainly consistent with culprit vessel. Left anterior descending artery is a moderate sized vessel, courses anterior intergroove, wraps around the apex. Stent in the proximal LAD is patent. Mild nonobstructive disease with a maximal narrowing of 25% noted in the mid segment. ROGELIO 3 flow of the LAD. At this point, given presentation with non-ST elevation myocardial infarction, catheterization findings, I decided to proceed with PCI of left circumflex. The patient loaded with aspirin and Effient, heparin given. Abnormal ACT confirmed. EBU 3.5 guide used to engage left main without difficulty, used a Whisper extra support wire to cross the lesion. Predilated with 3.0 x 12 balloon. Next, we used a 3.5 x 22 Resolute Kinsley drug-eluting stent. Good angiographic result. Next, we used intravascular ultrasound, multiple passes were made. The left circumflex and the left main are interrogated, the stent is well-opposed and well expanded. No dissection. ROGELIO 3 flow, excellent final angiographic result without evidence of complications. The patient is chest pain free and feels well. CONCLUSIONS: Acute atherothrombotic 99% subtotal occlusion of the mid circumflex in the milieu of a non-ST elevation myocardial infarction. A. Successful IVUS guided PCI with placement of a drug-eluting stent with excellent final angiographic and ultrasonographic results (Eloy 3.5 x 22 mm). B. Gmtl-kn-lrmitztg diffuse nonobstructive disease in the remainder of the coronary tree. C. Patent proximal LAD stent. D. Left ventriculography reveals anteroapical hypokinesis, estimated ejection fraction of 30-35%, high normal LVEDP. E. No evidence of aortic stenosis. The patient is now clinically stable, chest pain free, aspirin, Effient, statin therapy. I discussed smoking cessation techniques with him for at least 5 minutes. I absolutely need to quit smoking and adjust his lifestyle. His sister also happens to be a patient of mine. Standard radial care results discussed at length with the patient's family. All questions and concerns were addressed. He will be watched overnight in the ICU. JOB# [id number] SBM/NOHEMI
[2019-03-28] MEDS: COREG PO SCH ×2 (12:00→22:44)
[2019-03-28] MEDS: COLACE PO SCH ×2 (12:00→22:45)
--- NOTE | 2019-03-28 12:13 | Progress Note ---
Assessment and Plan Acute chest pain with non-ST elevation NH type 1 - monitored with serial CE and EKG - placed on Aspirin, statin, heparin drip, nitro drip and Aggrastat drip for 24 h - now off nitro drip and Aggrastat drip - as needed SL NTG and iv morphin for pain - Monitor BP, added betablocker, will add ACEI if BP tolerates - s/p cardiac cath today with PCI - cardiac diet now, cardiology following Ischemic cardiomyopathy with Ef 25% - stable now, follow clinically - monitor ins/os - will place on low dose lasix if Ok with cardiology CAD with PCI, cont current Mx, HTN, off nitro drip, cont coreg HLD, on statin Tobacco abuse, counselled for cessation, nicotine patch if needed DVT Px, lovenox Disposition: likely home tomorrow Brief History: Mr. Enriquez is a 63 y/o male who presented to the ED with left- sided chest pain x3 weeks that became severe yesterday and began radiating to his upper arm and shoulder. He has a history of CAD s/p PCI (4-5 y/a) hypertension, diabetes and GERD. 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 He reports that he is noncompliant with bASA, but was never prescribed an antiplatelet medication after his PCI. On admission, initial troponin 0.336 [address]/T wave changes noted on EKGs. He was started on heparin, aggrastat and nitroglycerin gtt in the ED. Subjective Date of service: 03/28/19 Principal diagnosis: NSTEMI Interval history: Patient seen and examined denies any chest pain or SOB s/p cadiac cath with PCI today Objective - Exam Narrative Exam: GENERAL: well-developed and well-nourished AAM lying on bed appeared to be in no discomfort. HEENT: Normocephalic. Atraumatic. No conjunctival congestion or icterus. Patient has moist mucous membranes. NECK: Supple. Trachea midline. CHEST/LUNGS: Clear to auscultated bilaterally, breathing nonlabored. No wheezes crackles or rhonchi. HEART/CARDIOVASCULAR: Regular in rate and rhythm. S1 and S2 positive. ABDOMEN: Abdomen is soft, nontender. Patient has normal bowel sounds. SKIN: There is no rash. Warm and dry. NEURO: No focal motor deficit. Follows command. MUSCULOSKELETAL: No joint effusion or tenderness. EXTRIMITY: No edema, no cyanosis or clubbing. PSYCH: Cooperative. - Constitutional Vitals: Vital Signs - 12hr 03/28/19 03/28/19 03/28/19 03:46 08:31 11:23 Temperature 98.2 F 98.0 F Pulse Rate 87 84 80 Respiratory 18 18 Rate Blood Pressure 121/85 124/96 Blood Pressure 110/84 [Left] O2 Sat by Pulse 94 96 Oximetry 03/28/19 11:33 Temperature Pulse Rate Respiratory Rate Blood Pressure 122/87 Blood Pressure [Left] O2 Sat by Pulse Oximetry - Labs CBC & Chem 7: 03/28/19 04:57 03/28/19 00:44 Labs: Abnormal lab results 03/28/19 03/28/19 Range/Units 00:44 04:57 Hgb 17.1 H (11.8-15.2) gm/dl Hct 50.7 H (35.5-45.6) % Glucose 109 H (75-100) mg/dL
[2019-03-28] MEDS ORDERED: LOVENOX SUB-Q SCH (22:00)
[2019-03-29 04:31] LABS: Basophils % (Auto) 0.4 % (0.0-1.8); Eosinophils # (Auto) 0.1 K/mm3 (0.0-0.4); Eosinophils % (Auto) 0.8 % (0.0-4.3); Hematocrit 49.2 % (35.5-45.6); Hemoglobin 16.7 gm/dl (11.8-15.2); Lymphocytes # (Auto) 2.2 K/mm3 (1.2-5.4); Lymphocytes % (Auto) 30.7 % (13.4-35.0); Mean Corpuscular HGB Conc 34 % (32-34); Mean Corpuscular Volume 92 fl (84-94); Monocytes # (Auto) 0.9 K/mm3 (0.0-0.8); Monocytes % (Auto) 11.7 % (0.0-7.3); Platelet Count 212 K/mm3 (140-440); Red Blood Count 5.34 M/mm3 (3.65-5.03)
[2019-03-29 07:09] LABS: Creatine Kinase MB 20.6 ng/mL (0.0-4.0)
[2019-03-29 07:10] LABS: Calcium 9.5 mg/dL (8.4-10.2)
--- NOTE | 2019-03-29 08:07 | XRay Report ---
CHEST 1 VIEW INDICATION: post pci. COMPARISON: 03/26/2009 FINDINGS: Support devices: None. Heart: Within normal limits. Lungs/Pleura: No acute air space or interstitial disease. Additional findings: None. IMPRESSION: No acute findings. Signer Name: Jorge Castro Jr, MD Signed: 03/29/2019 8:03 AM Workstation Name: [id number]
[2019-03-29] MEDS ORDERED: EFFIENT PO SCH (10:00)
[2019-03-29] MEDS ORDERED: BABY ASPIRIN PO SCH (10:00)
[2019-03-29] MEDS ORDERED: COZAAR PO SCH (10:00)
--- NOTE | 2019-03-29 10:10 | Progress Note ---
Assessment and Plan S/p LHC with PCI yesterday. Echo reviewed - EF 25-30%, pseudonormalization, mild to mod MR, mild TR. No current clinical evidence of acute heart failure. Cont coreg, resume home lisinopril. Currently stable cardiac status. Pt may discharge home from cardiology standpoint on current cardiac regimen. Follow up in our [place] office with Dr. Williamson on 04/01/2019 @ 2:00PM. The patient has been seen in conjunction with Dr. Sarah Blum who agrees with the assessment and plan of care. - Patient Problems (1) NSTEMI (non-ST elevated myocardial infarction) Current Visit: Yes Status: Acute (2) CAD (coronary artery disease) Current Visit: Yes Status: Chronic (3) Stented coronary artery Current Visit: Yes Status: Chronic (4) Cardiomyopathy Current Visit: Yes Status: Chronic (5) Hypertension Current Visit: Yes Status: Chronic (6) Diabetes Current Visit: Yes Status: Chronic Subjective Date of service: 03/29/19 Principal diagnosis: NSTEMI Interval history: pt resting in bed, no current complaints. Objective Last Vital Signs Temp 97.8 F 03/29/19 07:46 Pulse 85 03/29/19 07:46 Resp 15 03/29/19 08:49 BP 109/73 03/29/19 07:46 Pulse Ox 98 03/29/19 08:49 - Physical Examination General: No Apparent Distress HEENT: Positive: PERRL Neck: Positive: trachea midline Cardiac: Positive: Reg Rate and Rhythm, S1/S2 Lungs: Positive: Decreased Breath Sounds Neuro: Positive: Grossly Intact Abdomen: Positive: Unremarkable /Rectal: Other (deferred) Skin: Positive: Clear Incision: Cardiac Cath Site (right radial c/d/i no bleeding no hematoma) Musculoskeletal: No Pain Extremities: Present: normal - Labs and Meds Cardiac Enzymes 03/29/19 Range/Units 03:29 CK-MB (CK-2) 20.6 H (0.0-4.0) ng/mL CBC 03/29/19 Range/Units 03:29 WBC 7.3 (4.5-11.0) K/mm3 RBC 5.34 H (3.65-5.03) M/mm3 Hgb 16.7 H (11.8-15.2) gm/dl Hct 49.2 H (35.5-45.6) % Plt Count 212 (140-440) K/mm3 Lymph # 2.2 (1.2-5.4) K/mm3 [place] # 0.9 H (0.0-0.8) K/mm3 Eos # 0.1 (0.0-0.4) K/mm3 Baso # 0.0 (0.0-0.1) K/mm3 Comprehensive Metabolic Panel 03/29/19 Range/Units 03:29 Sodium 138 (137-145) mmol/L Potassium 4.0 (3.6-5.0) mmol/L Chloride 98.0 (98-107) mmol/L Carbon Dioxide 25 (22-30) mmol/L BUN 17 (9-20) mg/dL Creatinine 1.5 (0.8-1.5) mg/dL Glucose 128 H (75-100) mg/dL Calcium 9.5 (8.4-10.2) mg/dL - Imaging and Cardiology Echo: report reviewed (03/2019: EF 25 to 30 percent, ukxw-oy-tcjrlvxn MR, mild TR, RVSP 25) Cardiac cath: report reviewed - Telemetry EKG Rhythm: Sinus Rhythm Repolarization changes or abnormalities: ST or T wave suggestive of ischemia
[2019-03-29] MEDS: COLACE PO SCH (10:26)
[2019-03-29] MEDS: COREG PO SCH (10:27)
[2019-03-29 10:28] VITALS: BP 101/75
--- NOTE | 2019-03-29 11:41 | Discharge Summary ---
Providers - Providers Date of Admission: 03/26/19 10:19 Date of discharge: 03/29/19 Attending physician: OSBALDO ROME 03/26/19 10:15 Consult to Cardiology [CONS] Routine Consulting Provider: JAMAR FLANAGAN Reason For Exam: ACS, Chest Pain 03/28/19 Consult to Cardiac Rehabilitation [CONS] Routine Reason For Exam: post pci [facility]: [facility] Disposition: DC-01 TO HOME OR SELFCARE Core Measure Documentation - Palliative Care Palliative Care/ Comfort Measures: Not Applicable Exam - Constitutional Vitals: Temp Pulse Resp BP Pulse Ox 97.8 F 57 L 15 101/75 98 03/29/19 07:46 03/29/19 10:27 03/29/19 08:49 03/29/19 10:27 03/29/19 08:49 Plan Diet: low fat, low cholesterol, low salt, diabetic Plan of Treatment: 1.Follow up with PCP in 1 week. 2.Follow up with Dr. Sarah Blum, cardiology in 1 week 3.No strenous activity until cleared by Cardiology Assessment: 1.NSTEMI [facility] [Primary Care Provider[facility] - 7 Days Prescriptions: Prasugrel [Effient] 10 mg PO QDAY #30 tablet Aspirin EC [Halfprin EC] 81 mg PO QDAY #30 tablet.
== END 2019-03-29 12:30 | disposition home or self-care (01) | DRG 246 ==
LOC: ED 07:52 → CC1 10:19 → 4A 03-27 16:40
PROVIDERS: ADMIT Internal Medicine; ATTEND Internal Medicine
PROC: 4A023N7 Measurement of Cardiac Sampling and Pressure, Left Heart, Percutaneous Approach (ICD-10-PCS; principal; 2019-03-28)
PROC: 027034Z Dilation of Coronary Artery, One Artery with Drug-eluting Intraluminal Device, Percutaneous Approach (ICD-10-PCS; 2019-03-28)
PROC: B2111ZZ Fluoroscopy of Multiple Coronary Arteries using Low Osmolar Contrast (ICD-10-PCS; 2019-03-28)
PROC: B240ZZ3 Ultrasonography of Single Coronary Artery, Intravascular (ICD-10-PCS; 2019-03-28)
PROC: B2151ZZ Fluoroscopy of Left Heart using Low Osmolar Contrast (ICD-10-PCS; 2019-03-28)
DX: I21.4 Non-ST elevation (NSTEMI) myocardial infarction (principal); I50.31 Acute diastolic (congestive) heart failure; I25.10 Atherosclerotic heart disease of native coronary artery without angina pectoris; I10 Essential (primary) hypertension; E11.9 Type 2 diabetes mellitus without complications; I25.5 Ischemic cardiomyopathy; E78.5 Hyperlipidemia, unspecified; F17.200 Nicotine dependence, unspecified, uncomplicated; K21.9 Gastro-esophageal reflux disease without esophagitis; Z71.6 Tobacco abuse counseling; Z79.899 Other long term (current) drug therapy; Z95.5 Presence of coronary angioplasty implant and graft; I25.2 Old myocardial infarction
CPT/HCPCS: 36415; 71045; 80048; 80061; 82550; 82553; 82962; 84484; 85007; 85014; 85018; 85025; 85049; 85347; 85379; 85520; 85610; 85730; 92928; 92978; 93005; 93010; 93306; 93458; G0378; A9270-GY; C1725; C1753; C1769; C1874; C1887; C1894; C9600; J1644; J1650; J2250; J2270; J3010; J3246; J7030; J7040; Q9967